=== PATIENT | male | born 1995 | race Caucasian/White ===

== ENCOUNTER 2025-07-12 13:07 | Outpatient (CLI) | payer OTHER | END 2025-07-12 13:08 | disposition home or self-care (01) | LOC: SCSMRI 13:07 | PROVIDERS: ATTEND Family Medicine | DX: S46.912D Strain of unspecified muscle, fascia and tendon at shoulder and upper arm level, left arm, subsequent encounter (principal); M77.8 Other enthesopathies, not elsewhere classified ==